=== PATIENT | female | born 1990 | race Caucasian/White ===

== ENCOUNTER 2022-12-16 20:24 | Emergency (ER) | payer MEDICAID ==
[~2022-12-16] VITALS: Ht 177.8 cm; Wt 85.3 kg
[2022-12-16] MEDS ORDERED: TDAP DIPH,PERTUSS,TET VAC/PF 0.5 ML DISP.SYRIN IM ONE ×3 (21:30→21:32)
[2022-12-16 21:56] VITALS: BP 120/87; TEMP 98; O2SAT 99
== END 2022-12-16 21:56 | disposition home or self-care (01) ==
LOC: ER 20:26
DX: S01.81XA Laceration without foreign body of other part of head, initial encounter (principal); W22.8XXA Striking against or struck by other objects, initial encounter; Y93.89 Activity, other specified; Y92.89 Other specified places as the place of occurrence of the external cause; Y99.8 Other external cause status
CPT/HCPCS: 90715

== ENCOUNTER 2023-10-02 14:58 | Emergency (ER) | payer MEDICAID, OTHER ==
[~2023-10-02] VITALS: Ht 177.8 cm; Wt 78.5 kg
[2023-10-02 15:01] VITALS: O2SAT 98
[2023-10-02] MEDS ORDERED: AMOX-430 PO (15:16)
[2023-10-02] MEDS ORDERED: DOXY100C5 PO (15:16)
== END 2023-10-02 15:00 | disposition home or self-care (01) ==
LOC: ER 14:58
DX: L73.9 Follicular disorder, unspecified (principal)
CPT/HCPCS: A4606; A4663